=== PATIENT | female | born 1985 | race Caucasian/White ===

== ENCOUNTER → 2016-04-14 | Outpatient (CLI) | payer OTHER ==
[~2016-04-14] MED LIST: BUTALBITAL-APA1 EACH PO; SERTRALINE HCL50 MG PO; XANAX0.25 MG PO; ZANTAC150 MG PO; ZOLOFT100 MG PO
== END | disposition home or self-care (01) ==
LOC: NUC 01-29 11:00
DX: R94.8 Abnormal results of function studies of other organs and systems (principal); R10.31 Right lower quadrant pain
CPT/HCPCS: 78707; A9562